=== PATIENT | female | born 1940 | race Caucasian/White ===

== ENCOUNTER 2017-08-30 12:03 | Inpatient (IN) | payer OTHER, MEDICARE ==
[2017-08-30 12:26] VITALS: BMI 19.5
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
[2017-08-30] MEDS ORDERED: ACETAMINOPHEN 1000 MG/100 ML VIAL (NON FORMULARY) IVPB ONE (16:49)
[2017-08-30] MEDS ORDERED: ACETAMINOPHEN INJECTION 100 ML IVPB ONE (17:10)
[2017-08-30 17:14] LABS: BASO % 0.3 % (0-2.0); EOS % 0.3 % (0-4.5); HEMATOCRIT 33.9 % (32.4-45.2); HEMOGLOBIN 11.4 GM/dL (10.7-15.3); LYMPH % 11.7 % (8-40); MCH 31.6 pg (25.7-33.7); MCHC 33.7 g/dl (32.0-36.0); MEAN CELL VOLUME 93.7 fl (80-96); MEAN PLT VOLUME 7.4 fl (7.5-11.1); MONO % 4.6 % (3.8-10.2); NEUT % 83.1 % (42.8-82.8); PLATELET COUNT 263 K/MM3 (134-434); RBC 3.62 M/mm3 (3.60-5.2); RDW 14.9 % (11.6-15.6)
[2017-08-30 17:18] LABS: INR 1.05 (0.82-1.09); PROTHROMBIN TIME (PATIENT) 11.9 SEC (9.98-11.88)
[2017-08-30 17:21] LABS: ACTIVATED PTT 27.7 SECONDS (26.9-34.4)
[2017-08-30 17:25] LABS: ALBUMIN 3.8 g/dl (3.4-5.0); ANION GAP 9 (8-16); BILIRUBIN,TOTAL 0.5 mg/dL (0.2-1.0); BLOOD UREA NITROGEN 29 mg/dL (7-18); CALCIUM 10.3 mg/dL (8.5-10.1); CHLORIDE 105 mmol/L (98-107); CO2 25 mmol/L (21-32); CREATININE 1.1 mg/dL (0.55-1.02); GLUCOSE,RANDOM 91 mg/dL (74-106); POTASSIUM 4.6 mmol/L (3.5-5.1); SGOT/AST 28 U/L (15-37); SGPT/ALT 28 U/L (12-78); SODIUM 139 mmol/L (136-145); TOT PROT 6.9 g/dl (6.4-8.2)
[2017-08-30 17:26] LABS: ALK PHOS 86 U/L (45-117)
[2017-08-30] MEDS ORDERED: SODIUM CHLORIDE 0.9% 1000 ML INFUS.BAG IV ONE (18:08)
[2017-08-30] MEDS ORDERED: D5-1/2NS+20 MEQ KCL - 20 MEQ/1,000 ML INFUS.BAG IV SCH (19:45)
[2017-08-30] MEDS ORDERED: ATORVASTATIN CA 40 MG TABLET (FP) PO SCH (22:00)
[2017-08-30] MEDS: HEPARIN NA (PORCINE) 5,000 UNITS/ML 1ML VIAL SQ SCH (22:03)
[2017-08-30] MEDS: ENALAPRIL MALEATE 5 MG TABLET (FP) PO SCH (22:04)
[2017-08-30] MEDS: HYDROmorphone HCL CARPU-JECT 2 MG/1 ML DISP.SYRIN IVPUSH PRN (22:04)
[2017-08-31] MEDS: HYDROmorphone HCL CARPU-JECT 2 MG/1 ML DISP.SYRIN IVPUSH PRN (05:21)
[2017-08-31] MEDS ORDERED: HYDROmorphone HCL CARPU-JECT 2 MG/1 ML DISP.SYRIN IVPB PRN ×2 (05:58→17:00)
[2017-08-31] MEDS ORDERED: LEVOTHYROXINE NA 50 MCG TABLET (FP) PO SCH (07:00)
[2017-08-31 08:04] LABS: BASO % 0.5 % (0-2.0); EOS % 0.4 % (0-4.5); HEMATOCRIT 29.6 % (32.4-45.2); HEMOGLOBIN 9.9 GM/dL (10.7-15.3); LYMPH % 9.3 % (8-40); MCH 31.3 pg (25.7-33.7); MCHC 33.4 g/dl (32.0-36.0); MEAN CELL VOLUME 93.7 fl (80-96); MEAN PLT VOLUME 7.7 fl (7.5-11.1); MONO % 5.5 % (3.8-10.2); NEUT % 84.3 % (42.8-82.8); PLATELET COUNT 210 K/MM3 (134-434); RBC 3.16 M/mm3 (3.60-5.2); WHITE BLOOD COUNT 8.9 K/mm3 (4.0-10.0)
--- NOTE | 2017-08-31 08:32 | HP ---
Admitting History and Physical - Past Medical History Cardiovascular: Yes: CAD, CHF (chronic systolic failure, followed by Dr. Viviana Menon at [facility] heart failure clinic EF 35%), HTN, Hyperlipdemia Rheumatology: Yes: Rheumatoid Arthritis - Smoking History Smoking history: Former smoker Have you smoked in the past 12 months: No If you are a former smoker, when did you quit?: 2 years ago - Alcohol/Substance Use Hx Alcohol Use: No History of Substance Use: reports: None - Social History ADL: Independent History of Recent Travel: No Home Medications - Allergies Allergies/Adverse Reactions: Allergies Allergy/AdvReac Type Severity Reaction Status Date / Time No Known Allergies Allergy Verified 08/30/17 12:14 - Home Medications Home Medications: Ambulatory Orders Folic Acid 1 mg PO DAILY 08/08/15 Methotrexate [Mexate -] 2.5 tab PO WEEKLY 08/08/15 Atorvastatin Ca [Lipitor] 40 mg PO HS 05/18/16 Levothyroxine [Synthroid -] 50 mcg PO DAILY 05/18/16 Metoprolol Succinate [Toprol Xl -] 25 mg PO DAILY 05/18/16 Enalapril Maleate [Vasotec] 5 mg PO BID #0 tablet 05/21/16 Review of Systems - Review of Systems Cardiovascular: denies: Chest Pain, Edema, Palpitations Respiratory: denies: SOB, SOB on Exertion Gastrointestinal: denies: Abdominal Pain Musculoskeletal: reports: Extremity Pain (right), Joint Pain Physical Examination Vital Signs: Vital Signs Temperature 98.4 F 08/31/17 06:00 Pulse Rate 90 08/31/17 06:00 Respiratory Rate 20 08/31/17 06:00 Blood Pressure 105/66 08/31/17 06:00 O2 Sat by Pulse Oximetry (%) 96 08/31/17 00:13 Cardiovascular: Yes: Regular Rate and Rhythm Respiratory: Yes: Regular, CTA Bilaterally Gastrointestinal: Yes: Normal Bowel Sounds, Soft. No: Tenderness Musculoskeletal: Yes: Joint Stiffness Extremities: Yes: Internal Rotation (-right), Shortened (rt) Edema: No Neurological: Yes: Alert, Oriented Labs: CBC, BMP 08/31/17 06:30 Imaging - Results Cat Scan: Report Reviewed Problem List - Problems (1) CHF (congestive heart failure) Assessment/Plan: EF 35 % Laboratory Tests 08/30/17 20:08 Troponin I < 0.02 SAME MEDS CARDIO Code(s): I50.9 - HEART FAILURE, UNSPECIFIED (2) Hip fracture Assessment/Plan: ORTHO CONSULT DVT PROPHYLAXIS Code(s): S72.009A - FRACTURE OF UNSP PART OF NECK OF UNSP FEMUR, INIT (3) Hypertension Assessment/Plan: Vital Signs Period Temp Pulse Resp BP Sys/Ramirez Pulse Ox Last 24 Hr 97.6 F-98.6 F 70-90 16-20 98-136/52-70 96-99 Code(s): I10 - ESSENTIAL (PRIMARY) HYPERTENSION (4) CAD (coronary artery disease) Assessment/Plan: ASYMPTOMATIC NON-OBSTRUCTIVE DS PER FAMILY Code(s): I25.10 - ATHSCL HEART DISEASE OF [place] CORONARY ARTERY W/O ANG PCTRS
[2017-08-31 08:46] LABS: ALBUMIN 3.3 g/dl (3.4-5.0); ANION GAP 8 (8-16); BLOOD UREA NITROGEN 20 mg/dL (7-18); CALCIUM 9.2 mg/dL (8.5-10.1); CHLORIDE 106 mmol/L (98-107); CO2 23 mmol/L (21-32); GLUCOSE,RANDOM 132 mg/dL (74-106); POTASSIUM 4.5 mmol/L (3.5-5.1); SODIUM 137 mmol/L (136-145)
[2017-08-31 08:51] LABS: ALK PHOS 74 U/L (45-117); BILIRUBIN,TOTAL 0.8 mg/dL (0.2-1.0); CREATININE 0.8 mg/dL (0.55-1.02); SGOT/AST 19 U/L (15-37); SGPT/ALT 27 U/L (12-78); TOT PROT 6.1 g/dl (6.4-8.2)
--- NOTE | 2017-08-31 09:31 | PN ---
Progress Note (short form) - Note Progress Note: Ortho FULL CONSULT DICTATED BY DR. SANTOYO A/P- RIGHT FEMORAL NECK FX OR FOR RIGHT HIP CANNULATED SCREWS PENDING CLEARANCE
[2017-08-31] MEDS ORDERED: FOLIC ACID 1 MG TABLET (FP) PO SCH (10:00)
[2017-08-31] MEDS ORDERED: metoPROLOL SUCCINATE 25 MG TAB.SR.24H (FP) PO SCH (10:00)
--- NOTE | 2017-08-31 10:17 | PN ---
Progress Note (short form) - Note Progress Note: PATIENT HAS BEEN STABLE FOR OVER ONE YEAR WITHOUT ANY SIGNS OF HEART FAILURE PT HAS BEEN DOING HERNORMAL ACTIVITY S=WITHOUT SYMPTOMS NO EVIDENCE OF ISCHEMIA OR HEART FAILURE D/W CARDIO WITH ABOVE THERE ARE NO CONTRAINDICATION TO PROCEDURE WITH HIP SURGERY POSTOP EKG/TROPONIN AND CARDIAC MONITORING Problem List - Problems (1) CHF (congestive heart failure) Code(s): I50.9 - HEART FAILURE, UNSPECIFIED (2) Hip fracture Code(s): S72.009A - FRACTURE OF UNSP PART OF NECK OF UNSP FEMUR, INIT (3) Hypertension Code(s): I10 - ESSENTIAL (PRIMARY) HYPERTENSION (4) CAD (coronary artery disease) Code(s): I25.10 - ATHSCL HEART DISEASE OF [place] CORONARY ARTERY W/O ANG PCTRS
[2017-08-31] MEDS: HEPARIN NA (PORCINE) 5,000 UNITS/ML 1ML VIAL SQ SCH (10:27)
[2017-08-31] MEDS ORDERED: PT OWN MED DRAWER 7, Y5N ONE ×3 (10:29→16:19)
[2017-08-31] MEDS: ENALAPRIL MALEATE 5 MG TABLET (FP) PO SCH ×2 (10:32→22:02)
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
--- NOTE | 2017-08-31 14:06 | EKG ---
Test Reason : Blood Pressure : / mmHG Vent. Rate : 074 BPM Atrial Rate : 074 BPM P-R Int : 128 ms QRS Dur : 082 ms QT Int : 416 ms P-R-T Axes : 073 056 053 degrees QTc Int : 461 ms NORMAL SINUS RHYTHM SEPTAL INFARCT , AGE UNDETERMINED ABNORMAL ECG WHEN COMPARED WITH ECG OF 18-MAY-2016 11:12, SEPTAL INFARCT IS NOW PRESENT Confirmed by MANUEL MCCAIN, YANDEL ([id number]) on 08/31/2017 2:05:44 PM Referred By: Confirmed By:YANDEL JACKSON MD
[2017-08-31] MEDS ORDERED: MIDAZOLAM HCL 2 MG/2 ML SINGLE DOSE VIAL ONE (14:22)
[2017-08-31] MEDS ORDERED: ETOMIDATE 20 MG/10 ML AMPUL IVPUSH ONE (14:22)
[2017-08-31] MEDS ORDERED: PROPOFOL 20 ML ONE (14:22)
[2017-08-31] MEDS ORDERED: DESFLURANE GAS 240 ML BOTTLE IH ONE (14:25)
[2017-08-31] MEDS ORDERED: ceFAZolin SODIUM 1 GM VIAL IVPB ONE (14:42)
[2017-08-31] MEDS ORDERED: ceFAZolin SODIUM 1 GM VIAL ONE (15:15)
[2017-08-31] MEDS ORDERED: DEXAMETHASONE SOD PHOSPHATE 4 MG/1 ML VIAL ONE (15:15)
--- NOTE | 2017-08-31 15:26 | OP ---
Operative Note - Note: Operative Date: 08/31/17 Pre-Operative Diagnosis: right hip femoral neck fracture Operation: right hip ORIF with cannulated screws Implants: [place] Asnis-III cannulated screws x 3, 70, 80, 80 mm length Surgeon: Adrian Kline Anesthesiologist/CIRCUIT MANAGER: Dulce Maria Sinha Estimated Blood Loss (mls): 10 Drains, Volume Out (mls): 0 Blood Volume Replaced (mls): 0 Fluid Volume Replaced (mls): 700 Operative Report Dictated: Yes
[2017-08-31] MEDS ORDERED: ONDANSETRON 4 MG/2 ML VIAL IVPUSH PRN (15:39)
[2017-08-31] MEDS ORDERED: LACTATED RINGERS SOLUTION 1,000 ML IV SCH (15:45)
[2017-08-31] MEDS ORDERED: CEFAZOLIN 1 GM PUSH 1 GM/10 ML DISP.SYRIN IVPUSH SCH (18:00)
[2017-08-31] MEDS: D5-1/2NS+20 MEQ KCL - 20 MEQ/1,000 ML INFUS.BAG IV SCH (18:22)
[2017-08-31] MEDS ORDERED: CEFAZOLIN 1 GM/D5W 50 ML IVPB SCH (22:00)
[2017-08-31] MEDS: ATORVASTATIN CA 40 MG TABLET (FP) PO SCH (22:01)
[2017-08-31] MEDS: CEFAZOLIN 1 GM PUSH 1 GM/10 ML DISP.SYRIN IVPUSH SCH (23:13)
[2017-09-01] MEDS: CEFAZOLIN 1 GM PUSH 1 GM/10 ML DISP.SYRIN IVPUSH SCH (02:36)
[2017-09-01] MEDS ORDERED: CEFAZOLIN 1 GM PUSH 1 GM/10 ML DISP.SYRIN IVPUSH SCH (06:00)
[2017-09-01] MEDS: LEVOTHYROXINE NA 50 MCG TABLET (FP) PO SCH (06:13)
[2017-09-01 07:32] LABS: HEMATOCRIT 28.3 % (32.4-45.2); HEMOGLOBIN 9.4 GM/dL (10.7-15.3); MCH 31.2 pg (25.7-33.7); MCHC 33.1 g/dl (32.0-36.0); MEAN CELL VOLUME 94.3 fl (80-96); MEAN PLT VOLUME 7.6 fl (7.5-11.1); PLATELET COUNT 195 K/MM3 (134-434); RDW 15.3 % (11.6-15.6); WHITE BLOOD COUNT 8.9 K/mm3 (4.0-10.0)
[2017-09-01 07:54] LABS: ANION GAP 6 (8-16); BLOOD UREA NITROGEN 21 mg/dL (7-18); CHLORIDE 108 mmol/L (98-107); CO2 24 mmol/L (21-32); CREATININE 0.9 mg/dL (0.55-1.02); GLUCOSE,RANDOM 160 mg/dL (74-106); POTASSIUM 4.8 mmol/L (3.5-5.1); SODIUM 138 mmol/L (136-145)
--- NOTE | 2017-09-01 08:24 | PN ---
Progress Note (short form) - Note Progress Note: Ortho Pt seen and examined s/p right hip cannulated screws pod #1 Selected Entries 09/01/17 02:15 Temperature 98.8 F Pulse Rate 78 Respiratory 20 Rate Blood Pressure 102/74 Laboratory Tests 09/01/17 05:05 WBC 8.9 Hgb 9.4 L Hct 28.3 L Plt Count 195 dressing c/d/i, calf soft, nt nvi a/p PT TTWB RLE dvt ppx pain control d/c planning
--- NOTE | 2017-09-01 08:47 | PN ---
Progress Note, Physician - Current Medication List Current Medications: Active Medications Atorvastatin Calcium (Lipitor -) 40 mg PO HS [facility] Last Admin: 08/31/17 22:01 Dose: 40 mg Enalapril Maleate (Vasotec -) 5 mg PO BID [facility] Last Admin: 08/31/17 22:02 Dose: Not Given Enoxaparin Sodium (Lovenox -) 30 mg SQ DAILY [facility] Folic Acid (Folic Acid -) 1 mg PO DAILY [facility] Hydromorphone HCl (Dilaudid Injection -) 1 mg IVPB Q4H PRN PRN Reason: PAIN Potassium Chloride/Dextrose/Sod Cl (D5-1/2ns+20 Meq Kcl -) 20 meq in 1,000 mls @ 42 mls/hr IV ASDIR [facility] Last Admin: 08/31/17 18:22 Dose: 42 mls/hr Levothyroxine Sodium (Synthroid -) 50 mcg PO DAILY@0700 [facility] Last Admin: 09/01/17 06:13 Dose: 50 mcg Metoprolol Succinate (Toprol Xl -) 25 mg PO DAILY [facility] Ondansetron HCl (Zofran Injection) 4 mg IVPUSH Q6H PRN PRN Reason: NAUSEA AND/OR VOMITING - Objective Vital Signs: Vital Signs Temperature 98.8 F 09/01/17 02:15 Pulse Rate 66 09/01/17 06:00 Respiratory Rate 20 09/01/17 06:00 Blood Pressure 96/56 09/01/17 06:00 O2 Sat by Pulse Oximetry (%) 100 08/31/17 22:00 Cardiovascular: Yes: Regular Rate and Rhythm Respiratory: Yes: Regular, CTA Bilaterally Gastrointestinal: Yes: Normal Bowel Sounds, Soft Labs: CBC, BMP 09/01/17 05:05 09/01/17 05:05 INR, PTT INR 1.05 (0.82-1.09) 08/30/17 16:50 Problem List - Problems (1) Hip fracture Assessment/Plan: s/ surgery Operative Date: 08/31/17 Pre-Operative Diagnosis: right hip femoral neck fracture Operation: right hip ORIF with cannulated screws Implants: [place] Asnis-III cannulated screws x 3, 70, 80, 80 mm length Surgeon: Adrian Kline DVT PROPHYLAXIS Code(s): S72.009A - FRACTURE OF UNSP PART OF NECK OF UNSP FEMUR, INIT (2) CHF (congestive heart failure) Assessment/Plan: EF 35 % Laboratory Tests 08/30/17 20:08 Troponin I < 0.02 SAME MEDS CARDIO Code(s): I50.9 - HEART FAILURE, UNSPECIFIED (3) Hypertension Assessment/Plan: Vital Signs Period Temp Pulse Resp BP Sys/Ramirez Pulse Ox Last 24 Hr 97.6 F-98.6 F 70-90 16-20 98-136/52-70 96-99 Code(s): I10 - ESSENTIAL (PRIMARY) HYPERTENSION (4) CAD (coronary artery disease) Assessment/Plan: ASYMPTOMATIC NON-OBSTRUCTIVE DS PER FAMILY Code(s): I25.10 - ATHSCL HEART DISEASE OF [place] CORONARY ARTERY W/O ANG PCTRS
[2017-09-01] MEDS: FOLIC ACID 1 MG TABLET (FP) PO SCH (09:34)
[2017-09-01] MEDS: ENALAPRIL MALEATE 5 MG TABLET (FP) PO SCH ×2 (09:36→21:49)
[2017-09-01] MEDS: metoPROLOL SUCCINATE 25 MG TAB.SR.24H (FP) PO SCH (09:36)
[2017-09-01] MEDS: ENOXAPARIN NA (PORCINE) 30 MG/0.3 ML DISP.SYRIN SQ SCH (09:40)
[2017-09-01] MEDS ORDERED: ENOXAPARIN NA (PORCINE) 30 MG/0.3 ML DISP.SYRIN SQ SCH (10:00)
--- NOTE | 2017-09-01 11:27 | PN ---
Progress Note (short form) - Note Progress Note: Pt is day#1 s/p right hip fracture repair under [place]. Pt is doing well today, no pain, OOB to chair. No anesthetic complications; continue current therapy
--- NOTE | 2017-09-01 11:34 | EKG ---
Test Reason : Blood Pressure : / mmHG Vent. Rate : 083 BPM Atrial Rate : 083 BPM P-R Int : 134 ms QRS Dur : 090 ms QT Int : 384 ms P-R-T Axes : 048 047 034 degrees QTc Int : 451 ms NORMAL SINUS RHYTHM NORMAL ECG WHEN COMPARED WITH ECG OF 30-AUG-2017 16:44, NO SIGNIFICANT CHANGE WAS FOUND Confirmed by STEFF PRESLEY MD ([id number]) on 09/01/2017 11:33:47 AM Referred By: CAREY NATARAJAN Confirmed By:STEFF PRESLEY MD
--- NOTE | 2017-09-01 13:25 | PN ---
Progress Note, Physician Chief Complaint: Hip pain History of Present Illness: The patient is comfortable in the chair. She status post hip surgery. Denies chest pains and shortness of breath. No palpitations. - Current Medication List Current Medications: Active Medications Atorvastatin Calcium (Lipitor -) 40 mg PO HS [facility] Last Admin: 08/31/17 22:01 Dose: 40 mg Enalapril Maleate (Vasotec -) 5 mg PO BID [facility] Last Admin: 09/01/17 09:36 Dose: Not Given Enoxaparin Sodium (Lovenox -) 30 mg SQ DAILY [facility] Last Admin: 09/01/17 09:40 Dose: 30 mg Folic Acid (Folic Acid -) 1 mg PO DAILY [facility] Last Admin: 09/01/17 09:34 Dose: 1 mg Hydromorphone HCl (Dilaudid Injection -) 1 mg IVPB Q4H PRN PRN Reason: PAIN Potassium Chloride/Dextrose/Sod Cl (D5-1/2ns+20 Meq Kcl -) 20 meq in 1,000 mls @ 42 mls/hr IV ASDIR [facility] Last Admin: 08/31/17 18:22 Dose: 42 mls/hr Levothyroxine Sodium (Synthroid -) 50 mcg PO DAILY@0700 [facility] Last Admin: 09/01/17 06:13 Dose: 50 mcg Metoprolol Succinate (Toprol Xl -) 25 mg PO DAILY [facility] Last Admin: 09/01/17 09:36 Dose: Not Given Ondansetron HCl (Zofran Injection) 4 mg IVPUSH Q6H PRN PRN Reason: NAUSEA AND/OR VOMITING - Objective Vital Signs: Vital Signs Temperature 98.8 F 09/01/17 02:15 Pulse Rate 69 09/01/17 08:51 Respiratory Rate 20 09/01/17 08:51 Blood Pressure 96/59 09/01/17 08:51 O2 Sat by Pulse Oximetry (%) 100 09/01/17 08:49 Constitutional: Yes: Well Nourished, No Distress, Calm Eyes: Yes: WNL, Conjunctiva Clear HENT: Yes: WNL, Atraumatic, Normocephalic Neck: Yes: WNL, Supple, Trachea Midline Cardiovascular: Yes: WNL Respiratory: Yes: WNL, Regular, CTA Bilaterally Gastrointestinal: Yes: WNL, Normal Bowel Sounds, Soft ...Rectal Exam: Yes: Deferred Genitourinary: Yes: WNL Musculoskeletal: Yes: WNL Extremities: Yes: WNL Edema: No Peripheral Pulses WNL: Yes Peripheral Pulses: Left Radial: 1+, Right Radial: 1+, Left Doralis Pedis: 1+, Right Dorsalis Pedis: 1+, Left Femoral: 1+, Right Femoral: 1+ Integumentary: Yes: WNL Wound/Incision: Yes: Clean/Dry Neurological: Yes: WNL ...Motor Strength: WNL Psychiatric: Yes: WNL Labs: CBC, BMP 09/01/17 05:05 09/01/17 05:05 INR, PTT INR 1.05 (0.82-1.09) 08/30/17 16:50 Assessment/Plan The patient has been stable from the cardiac standpoint. She is euvolemic and breathing comfortably. Denies chest pains. The surgery went uneventful. There is no need for further cardiac workup at this point. Continue salt and fluid restrictions. Continue current regimen. No need for further cardiac workup at this point. May stop telemetry. Please do not hesitate to call us PRN
--- NOTE | 2017-09-01 15:04 | OP ---
DATE OF OPERATION: 08/31/2017 PREOPERATIVE DIAGNOSIS: Right hip femoral neck fracture. POSTOPERATIVE DIAGNOSIS: Right hip femoral neck fracture. PROCEDURE: Right hip open reduction and internal fixation/cannulated screws. SURGEON: Nancy Castillo MD ASSISTANTS: None. ANESTHESIOLOGIST: Dulce Maria Sinha MD DRAINS: None. COMPLICATIONS: None. BLOOD LOSS: 10 mL BLOOD GIVEN: None. FLUID REPLACEMENT: 700 mL INDICATION FOR PROCEDURE: This patient is a 77-year-old female with a preoperative diagnosis of a nondisplaced right hip femoral neck fracture. After understanding the potential risks, complications, alternatives, and benefits of surgery versus nonsurgical treatment, the patient elected to undergo this procedure. DESCRIPTION OF PROCEDURE: Patient was brought to the operating room, peripheral IV placed, IV sedation given. One gram of IV Ancef was given. LMA anesthesia was induced. Ample Webril was placed on the peroneal posts and both ankles. She was placed onto the fracture table in the standard position. AP and lateral x-rays were taken, documenting a nondisplaced right femoral neck fracture. The area was then prepped and draped in sterile fashion. A longitudinal incision was marked out and made with a number 10 scalpel blade. Subcutaneous hemostasis achieved with Bovie cautery. Dissection done down through the lateral fascia to the lateral aspect of the femur. A Sheikh elevator was used to take the soft tissue off the lateral aspect of the femur. Under direct C-arm fluoroscopy guidance, I put in one cannulated screw into the center-center position. It was documented in AP and lateral planes. Then, using the Lesia ASNIS III handheld triangular guide, I put in two more screws, getting good purchase anteriorly, posteriorly, superiorly, and inferiorly. X-rays were taken in multiple AP and lateral planes. I liked the position of the fracture fragments, the hardware, and the length of the hardware. All the guidewires were removed. Final x-rays were taken. The area was copiously irrigated and washed out, 0 Vicryl used to close the deep fascial layer, 2-0 Vicryl used to close the deep dermal layer. Final skin reapproximation was done with mika. The area was then washed and dried and covered with an Aquacel dressing. The patient was extubated and taken down off the fracture table in stable condition. Total operative time was about 40 minutes. There were no complications during the case. The patient tolerated the procedure quite well, was brought to the ambulatory recovery room in stable condition. NANCY CASTILLO M.D. [id number]
[2017-09-01] MEDS: D5-1/2NS+20 MEQ KCL - 20 MEQ/1,000 ML INFUS.BAG IV SCH (17:41)
[2017-09-01] MEDS ORDERED: PT OWN MED DRAWER 7, Y5N ONE (21:24)
[2017-09-01] MEDS: ATORVASTATIN CA 40 MG TABLET (FP) PO SCH (21:49)
[2017-09-02] MEDS: LEVOTHYROXINE NA 50 MCG TABLET (FP) PO SCH (06:10)
[2017-09-02 08:19] LABS: HEMATOCRIT 29.7 % (32.4-45.2); HEMOGLOBIN 9.9 GM/dL (10.7-15.3); MCH 31.2 pg (25.7-33.7); MCHC 33.2 g/dl (32.0-36.0); MEAN CELL VOLUME 93.9 fl (80-96); MEAN PLT VOLUME 7.8 fl (7.5-11.1); PLATELET COUNT 203 K/MM3 (134-434); RBC 3.16 M/mm3 (3.60-5.2); RDW 14.8 % (11.6-15.6); WHITE BLOOD COUNT 9.5 K/mm3 (4.0-10.0)
[2017-09-02] MEDS ORDERED: PT OWN MED DRAWER 7, Y5N ONE (09:15)
[2017-09-02] MEDS: FOLIC ACID 1 MG TABLET (FP) PO SCH (09:18)
[2017-09-02] MEDS: ENOXAPARIN NA (PORCINE) 30 MG/0.3 ML DISP.SYRIN SQ SCH (09:18)
--- NOTE | 2017-09-02 10:32 | PN ---
Progress Note (short form) - Note Progress Note: Ortho Pt seen and examined s/p right hip cannulated screws pod #2 Selected Entries 09/02/17 05:54 Temperature 97.7 F Pulse Rate 85 Respiratory 20 Rate Blood Pressure 110/68 Laboratory Tests 09/02/17 06:00 WBC 9.5 Hgb 9.9 L Hct 29.7 L Plt Count 203 dressing c/d/i, calf soft, nt nvi a/p PT TTWB RLE dvt ppx pain control d/c planning
[2017-09-02] MEDS: ENALAPRIL MALEATE 5 MG TABLET (FP) PO SCH (10:41)
[2017-09-02] MEDS: metoPROLOL SUCCINATE 25 MG TAB.SR.24H (FP) PO SCH ×2 (10:41→11:04)
[2017-09-02] MEDS ORDERED: INSULIN SLIDING SCALE (NOVOLOG) 1 VIAL SQ SCH (11:00)
[2017-09-02 11:02] VITALS: PULSE 97; TEMP 98.1
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
[2017-09-02 15:35] VITALS: BP 127/59
== END 2017-09-02 16:37 | DRG 308 ==
LOC: JER 12:03 → JERBED 18:21 → J6S 20:33 → J4W 08-31 17:33 → J6S 09-01 16:37
PROVIDERS: ADMIT Family Medicine; ATTEND Family Medicine
PROC: 0QS604Z Reposition Right Upper Femur with Internal Fixation Device, Open Approach (ICD-10-PCS; principal; 2017-08-31 11:00)
DX: S72.001A Fracture of unspecified part of neck of right femur, initial encounter for closed fracture (principal); I50.22 Chronic systolic (congestive) heart failure; S62.355A Nondisplaced fracture of shaft of fourth metacarpal bone, left hand, initial encounter for closed fracture; S93.401A Sprain of unspecified ligament of right ankle, initial encounter; I25.10 Atherosclerotic heart disease of native coronary artery without angina pectoris; Z87.891 Personal history of nicotine dependence; V03.10XA Pedestrian on foot injured in collision with car, pick-up truck or van in traffic accident, initial encounter; Y93.89 Activity, other specified; Y92.488 Other paved roadways as the place of occurrence of the external cause; Y99.8 Other external cause status; I11.0 Hypertensive heart disease with heart failure; E78.5 Hyperlipidemia, unspecified; M06.9 Rheumatoid arthritis, unspecified
CPT/HCPCS: 36415; 70450-TC; 71010-TC; 72192-TC; 73110-TC-LT; 73130-TC-LT; 73523-TC; 73562-TC-RT; 73610-TC-RT; 73630-TC-RT; 76000-TC; 80048; 80053; 82550; 84484; 85025; 85027; 85610; 85730; 93005; 93010; 94760; 97116-GP; 97161-GP; 99284-25; J1644

== ENCOUNTER 2022-08-18 13:01 | Emergency (ER) | payer OTHER, MEDICARE ==
[2022-08-18 14:14] VITALS: BP 118/70; PULSE 68; RESP 18; TEMP 97.3; BMI 21.4
== END 2022-08-18 15:23 | disposition home or self-care (01) ==
LOC: JER 13:01 → JERFT 13:01
DX: S90.111A Contusion of right great toe without damage to nail, initial encounter (principal); S90.421A Blister (nonthermal), right great toe, initial encounter; W20.8XXA Other cause of strike by thrown, projected or falling object, initial encounter
CPT/HCPCS: 73660-TC-FY; 99283-25

== ENCOUNTER 2022-09-05 17:04 | Emergency (ER) | payer OTHER, MEDICARE ==
[2022-09-05 17:30] VITALS: BP 120/73; PULSE 63; RESP 18; TEMP 98; BMI 21.1
[2022-09-05] MEDS ORDERED: METHOCARBAMOL 500 MG TABLET PO ONE ×2 (20:37→20:38)
[2022-09-05] MEDS ORDERED: IBUPROFEN 600 MG TABLET (FP) PO ONE ×2 (20:37→20:38)
[2022-09-05] MEDS ORDERED: METHOCARBAMOL 500 MG TABLET ONE (20:39)
== END 2022-09-05 23:01 | disposition home or self-care (01) ==
LOC: JER 17:04 → JERFT 17:04
DX: M54.31 Sciatica, right side (principal)
CPT/HCPCS: 99283-25